=== PATIENT | male | born 1985 | race Caucasian/White ===

== ENCOUNTER → 2017-12-28 | Outpatient (CLI) | payer OTHER ==
[2014-09-15 08:55] VITALS: BP 138/68
--- NOTE | 2017-12-28 18:07 | KCIC ---
KNEE 3 VIEWS RIGHT, STANDING Clinical Indication: Right anterior inferior knee pain. Intermittent popping. Gives out. Comparison: None. Findings: There is no acute fracture or dislocation. The tricompartmental joint spaces are maintained. The patella is in anatomic position. There is no soft tissue abnormality. There is no joint effusion. IMPRESSION: No acute bone abnormality. Electronically signed by: Marquez Tran MD (12/28/2017 6:03 PM) [id number]
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
== END | disposition home or self-care (01) ==
LOC: KCIC 12:17
PROVIDERS: ATTEND Family Medicine
DX: M25.561 Pain in right knee (principal); M25.511 Pain in right shoulder
CPT/HCPCS: 73030; 73562